=== PATIENT | female | born 1995 | race Two or more races ===

== ENCOUNTER 2024-06-26 03:03 | Emergency (ER) | payer MEDICAID, SELFPAY ==
[2024-06-26 03:06] VITALS: BP 129/91; PULSE 125; RESP 17; TEMP 36.4; O2SAT 97
[2024-06-26 03:13] VITALS: BMI 30.9
--- NOTE | 2024-06-26 03:51 | EDNOTE_ITS ---
ED Medical Clearance RME/HPI General Chief complaint: Medical Clearance Stated complaint: DETENTION CHECK Arrival date/time: 06/26/24 03:03 RME / HPI RME / HPI Narrative: This section includes all my notes and documentations, including HPI, PE, and ED course. Isaak Solano MD HPI: 29-year-old female here to be evaluated for medical clearance for incarceration. She was arrested for public intoxication. Found drugs in her possession. Due to severe hyperventilation, she was brought here for evaluation. Patient reports no complaints. ROS: All negative except as documented in HPI. Physical Exam: General: Alert and oriented. No acute distress. Eyes: Conjunctivae and lids clear. EOMI. PERRL. ENT: No nasal congestion. Pharynx normal. Tympanic membrane normal bilaterally. Neck: Supple. No JVD. Heart: Sinus tachycardia noted (~125 bpm). Lungs: No respiratory distress. Good air movement. No rhonchi, wheezing, rales. Abdomen: Soft and nontender. Normal bowel sounds. No distension. No rebound or guarding. Legs: No clubbing, cyanosis, edema. Skin: Warm and dry. Neuro: Alert and oriented X 3. Cranial Nerves II-XII grossly intact. No peripheral motor deficits. Treatment here included oral metoprolol 25 mg. She remained stable. Based on my best medical judgment, made decision to medically cleared the patient for intermediate and no further evaluation or treatment indicated at this time. Patient understands and agrees to the discharge instructions customized and printed, see below. Discharge Instructions from Dr. Solano printed for you: 1. After evaluation, you are medically cleared for intermediate. 2. You are given oral metoprolol 25 mg for fast heart rate. 3. See a private doctor on 06/27/2024 or when you are released for recheck and further care, including your BP and heart rate. Ask for help to quit alcohol and drugs, if applicable. To prevent potential fatal accidents and injuries and illnesses. 4. Ask for immediate medical care with any concerns. Isaak Solano MD Related Information Previous Rx's ?Medication ?Instructions ?Recorded tramadol 37.5 mg-acetaminophen 325 1 tab PO TID PRN pain #15 tabs 12/10/22 mg tablet (Ultracet) benzonatate 150 mg capsule 150 mg PO BID PRN cough #20 caps 11/23/22 diphenhydramine HCl 25 mg capsule 25 mg PO TID PRN cough #20 caps 11/23/22 (Allergy (diphenhydramine)) ibuprofen 800 mg tablet 800 mg PO Q8H PRN pain #20 tabs 11/23/22 cyclobenzaprine 10 mg tablet 10 mg PO BID #10 tabs 02/19/23 meloxicam 7.5 mg tablet 7.5 mg PO QDAY #10 tabs 02/19/23 ibuprofen 800 mg tablet 800 mg PO TID PRN pain #30 tabs 03/09/23 cefuroxime axetil 500 mg tablet 500 mg PO BID #14 tabs 04/12/23 Allergies Allergy/AdvReac Type Severity Reaction Status Date / Time No Known Allergies Allergy Unverified 04/12/23 15:30 Course Quality Measures none Orders Category Date Time Status Metoprolol Tartrate [Lopressor] Med 06/26/24 03:47 Discontinued 25 mg PO X1 ONE Vital Signs Vital signs: Vital Signs Temperature 97.5 F 06/26/24 03:06 Pulse Rate 125 H 06/26/24 03:06 Respiratory Rate 17 06/26/24 03:06 Blood Pressure 129/91 H 06/26/24 03:06 Pulse Oximetry (%) 97 06/26/24 03:06 Oxygen Delivery Method Room Air 06/26/24 03:06 Medical Clearance Patient data External records reviewed:: [facility] previous records Clinical information provided by:: patient and law enforcement Social determinants that could affect healthcare access:: alcohol use Patient has the following chronic illnesses:: Alcohol and substance abuse How is presenting disease/condition affected by chronic disease/condition?: exacerbated by Evaluation data The following diagnostics were reviewed and interpreted by me:: other (specify) (No diagnostic tests ordered) Lab and/or radiology exams considered but not ordered:: None Interpretation Summary: No diagnostic tests ordered Medications / Prescriptions Medications or Prescriptions considered but not ordered:: None Medication administrations:: Medication Administration History Discontinued Medications Metoprolol Tartrate (Metoprolol Tartrate 25 Mg Tablet) 25 mg PO X1 ONE Stop: 06/26/24 03:48 Metoprolol Consultations Consultation(s) initiated? (list below): No Diagnosis Medical Clearance Differential Diagnosis: other (Alcohol intoxication, drug use, anxiety) Most likely diagnosis given after review of the tests above:: Alcohol intoxication, drug use, anxiety Admission Indicated Admission indicated?: not indicated Explain why admission is indicated or not indicated:: Admission criteria not met Admission Request Was there a request for admission?: No Disposition Plan Disposition Plan: Discharge Discharge Attestation Discharge Attestation: The patient and all family members were given an opportunity to ask questions and understood the discharge instructions. Discharge instructions specifically effects, indications for sooner follow up or return to the emergency department, and the expected course of current diagnosis. Patient condition: Stable Discharge Plan Plan Patient Disposition: Penitentiary/Court/Law Prescriptions/Referrals Prescriptions/Med Rec: No Action diphenhydramine HCl [Allergy (diphenhydramine)] 25 mg capsule 25 mg PO TID PRN (Reason: cough) Qty: 20 0RF ibuprofen 800 mg tablet 800 mg PO Q8H PRN (Reason: pain) Qty: 20 0RF benzonatate 150 mg capsule 150 mg PO BID PRN (Reason: cough) Qty: 20 0RF ibuprofen 800 mg tablet 800 mg PO TID PRN (Reason: pain) Qty: 30 0RF tramadol-acetaminophen [Ultracet] 37.5-325 mg tablet 1 tab PO TID PRN (Reason: pain) Qty: 15 0RF cyclobenzaprine 10 mg tablet 10 mg PO BID Qty: 10 0RF meloxicam 7.5 mg tablet 7.5 mg PO QDAY Qty: 10 0RF cefuroxime axetil 500 mg tablet 500 mg PO BID Qty: 14 0RF Referrals: No Primary/Family,Physician [Primary Care Provider] - In 1 week Problem List Clinical Impression: Medical clearance for incarceration Patient/Caregiver Discharge Instructions Education Materials: ED Drug Abuse, ED Alcohol Intoxication Additional Instructions: Discharge Instructions from Dr. Solano printed for you: 1. After evaluation, you are medically cleared for intermediate. 2. You are given oral metoprolol 25 mg for fast heart rate. 3. See a private doctor on 06/27/2024 or when you are released for recheck and further care, including your BP and heart rate. Ask for help to quit alcohol and drugs, if applicable. To prevent potential fatal accidents and injuries and illnesses. 4. Ask for immediate medical care with any concerns. Print Language: Iranian
[2024-06-26 03:55] VITALS: BP 129/91; PULSE 130
[2024-06-26] MEDS: METOPROLOL TARTRATE 25 MG TABLET PO (03:55)
== END 2024-06-26 03:58 ==
PROVIDERS: Emergency Provider Emergency Medicine
DX: Z02.89 Encounter for other administrative examinations (principal)
CPT/HCPCS: 99282; A9270

== ENCOUNTER 2025-03-17 16:19 | Emergency (ER) | payer MEDICAID, SELFPAY ==
[2025-03-17 16:20] VITALS: BMI 30.9
[2025-03-17 16:42] VITALS: BP 131/87; PULSE 99; RESP 18; TEMP 37.2; O2SAT 97
--- NOTE | 2025-03-17 17:01 | EDNOTE_ITS ---
ED Skin Abcess FB-RME/HPI General Chief complaint: Skin/Abscess/Foreign Body Stated complaint: SPIDER BITE TO RIGHT CHEEK 3 DAYS AGO Time Seen by Provider: 03/17/25 16:39 Source: patient Arrival date/time: 03/17/25 16:19 This is a case of 30-year-old female with no medical history came in in the emergency room due to painful lump on the right cheek with redness and swelling secondary to spider bite 3 days ago due to worsening of the symptoms this patient decided to sought consult here in the emergency room Limitations: no limitations Related Data Previous Rx's ?Medication ?Instructions ?Recorded tramadol 37.5 mg-acetaminophen 325 1 tab PO TID PRN pa in #15 tabs 06/11/22 mg tablet (Ultracet) benzonatate 150 mg capsule 150 mg PO BID PRN cough #20 caps 11/23/22 diphenhydramine HCl 25 mg capsule 25 mg PO TID PRN cou gh #20 caps 11/23/22 (Allergy (diphenhydramine)) ibuprofen 800 mg tablet 800 mg PO Q8H PRN pain #20 t abs 11/23/22 cyclobenzaprine 10 mg tablet 10 mg PO BID #10 tabs meloxicam 7.5 mg tablet 7.5 mg PO QDAY #10 tabs 02/01 ibuprofen 800 mg tablet 800 mg PO TID PRN pain #30 t abs 03/09/23 cefuroxime axetil 500 mg tablet 500 mg PO BID #14 tabs 04/12/23 clindamycin HCl 300 mg capsule 300 mg PO Q6H #40 caps 03/17/25 doxycycline hyclate 100 mg tablet 100 mg PO BID #20 ta bs 03/17/25 Allergies Allergy/AdvReac Type Severity Reaction Status Date / Time No Known Allergies Allergy Unverified 03/17/25 16:22 Review of Systems Review of Systems Systems Reviewed: All systems reviewed, normal except as documented Constitutional Constitutional: Reports system reviewed and no additional complaints, except as documented and Reports as per HPI Cardiovascular Cardiovascular: Reports system reviewed and no additional complaints, except as documented and Reports as per HPI Respiratory Respiratory: Reports system reviewed and no additional complaints, except as documented and Reports as per HPI Gastrointestinal Gastrointestinal: Reports system reviewed and no additional complaints, except as documented and Reports as per HPI Musculoskeletal Musculoskeletal: Reports system reviewed and no additional complaints, except as documented and Reports as per HPI Integumentary/Breasts Skin/Breast: Reports other (Abscess) Neurologic Neurologic: Reports system reviewed and no additional complaints, except as documented Past Medical History Past Medical History NEUROLOGIC: Negative Seizures CARDIAC: Negative Cardiac Disorders or Congestive Heart Failure RESPIRATORY: Positive Asthma; Negative Chronic Obstructive Pulmonary Disease (COPD) GASTROINTESTINAL: Positive Gall Bladder Disease; Negative Gastrointestinal Disorders GENITOURINARY: Negative Renal Disease ENDOCRINE: Negative Endocrine Disorders, Diabetes Mellitus Type 1 or Diabetes Mellitus Type 2 PSYCHO/SOCIAL: Positive Depression and Anxiety OTHER HISTORY: Negative Blood Transfusions, Blood Transfusion Reaction or Anesthesia Reactions Social History SMOKING STATUS: Current some day smoker ED Exam General Limitations: Present no limitations General appearance: Present alert, in no apparent distress and other (Patient is awake alert oriented not in distress nontoxic looking well-hydrated well- nourished) Head Head exam: Present atraumatic, normocephalic and normal inspection Eye Eye exam: Present normal appearance, PERRL, EOMI and other (PERRL EOM intact normal conjunctiva no periorbital swelling redness or cellulitis no papilledema no hyphema) ENT ENT exam: Present normal exam, normal oropharynx and mucous membranes moist Neck Neck exam: Present normal inspection, full ROM and trachea midline; Absent tenderness, meningismus, lymphadenopathy or thyromegaly Chest Chest inspection: Present normal inspection and symmetric chest wall rise; Absent tenderness, rash or abscess Respiratory Respiratory exam: Present normal lung sounds bilaterally; Absent respiratory distress, wheezes, stridor, accessory muscle use or prolonged expiratory phase Cardiovascular Cardiovascular exam: Present regular rate, normal rhythm and normal heart sounds; Absent bradycardia, tachycardia, irregular rhythm, systolic murmur or diastolic murmur Abdominal Exam Abdominal exam: Present soft and normal bowel sounds Extremities Exam Extremities exam: Present normal inspection and full ROM Back Exam Back exam: Present normal inspection and full ROM Neurological Exam Neurological exam: Present alert, oriented X3, CN II-XII intact, normal gait and reflexes normal; Absent motor sensory deficit Psychiatric Psychiatric exam: Present normal affect and normal mood Skin Skin exam: Present warm, dry, intact, normal color and other (Noted 2 to 3 cm lump hard and tender to touch with redness and swelling suggestive of abscess no fluctuance none indurated no surrounding cellulitis no ulcer) Course Quality Measures none Orders Category Date Time Status Clindamycin Vial [Cleocin vial] Med 03/17/25 16:51 Discontinued 600 mg IM X1 ONE Vital Signs Vital signs: Vital Signs Temperature 98.9 F 03/17/25 16:42 Pulse Rate 99 03/17/25 16:42 Respiratory Rate 18 03/17/25 16:42 Blood Pressure 131/87 H 03/17/25 16:42 Pulse Oximetry (%) 97 03/17/25 16:42 Oxygen Delivery Method Room Air 03/17/25 16:42 Oxygen saturation is 97% in room air Skin / Abscess / Foreign Body MDM Narrative MDM Narrative:: This is a case of 30-year-old female with no medical history came in in the emergency room due to painful lump on the right cheek with redness and swelling secondary to spider bite 3 days ago due to worsening of the symptoms this patient decided to sought consult here in the emergency room physical examination patient is awake alert oriented not in distress nontoxic looking well-hydrated well-nourished noted 2 to 3 cm lump on the right cheek tender to touch hard to touch with redness and swelling suggestive of abscess no fluctuance not indurated no surrounding cellulitis the rest of the physical examination were normal no periorbital cellulitis tenderness or swelling based on my physical examination there is a localized abscess on the right cheek at the time of exam there is no indication to perform incision and drainage clindamycin IM was given and followed with prescription of clindamycin and doxycycline patient was advised to return in the emergency room in 2 days for reevaluation and possible incision and drainage for any worsening symptoms or any emergent concern return precaution in the ER was advised Patient was discharged with comfortable condition walking with stable gait. Patient verbalized no further complains explained diagnosis and answered patient question. Patient is comfortable with the proposed management plan including the need to follow up with his/her primary care physician and any specialist if applicable Discussed patient for any urgent condition or worsening sx, He/She needed to go to emergency room immediately or call 911. Patient acknowledge the responsibility to follow up as instructed and to monitor her/his symptoms. For any persistence of the symptoms for more than 3-5 days return precaution advised. Discussed the result of the test and was given printed discharge instruction Patient data External records reviewed:: [facility] previous records Clinical information provided by:: patient Social determinants that could affect healthcare access:: none Patient has the following chronic illnesses:: None How is presenting disease/condition affected by chronic disease/condition?: no chronic disease Evaluation data The following diagnostics were reviewed and interpreted by me:: other (specify) (None) Lab and/or radiology exams considered but not ordered:: None Interpretation Summary: None Medications / Prescriptions Medications or Prescriptions considered but not ordered:: Given Medication administrations:: Medication Administration History Discontinued Medications Clindamycin Phosphate (Clindamycin Phos Inj 150 Mg/Ml Vial 6 Ml) 600 mg IM X1 ONE Stop: 03/17/25 16:52 Given Consultations Consultation(s) initiated? (list below): No Diagnosis Skin/Abscess Differential Diagnosis: abscess of skin or subcutaneous tissue, urticaria, cellulitis and insect bites Most likely diagnosis given after review of the tests above:: Abscess right cheek Admission Indicated Admission indicated?: not indicated Explain why admission is indicated or not indicated:: Not indicated Admission Request Was there a request for admission?: No Admission Attestation Admission request attestation: Not indicated Disposition Plan Disposition Plan: Discharge Discharge Attestation Discharge Attestation: The patient and all family members were given an opportunity to ask questions and understood the discharge instructions. Discharge instructions specifically effects, indications for sooner follow up or return to the emergency department, and the expected course of current diagnosis. Patient condition: Stable Discharge Plan Plan Patient Disposition: HOME (Self Care) Patient condition on transfer: Stable Prescriptions/Referrals Prescriptions/Med Rec: New clindamycin HCl 300 mg capsule 300 mg PO Q6H Qty: 40 0RF doxycycline hyclate 100 mg tablet 100 mg PO BID Qty: 20 0RF No Action diphenhydramine HCl [Allergy (diphenhydramine)] 25 mg capsule 25 mg PO TID PRN (Reason: cough) Qty: 20 0RF ibuprofen 800 mg tablet 800 mg PO Q8H PRN (Reason: pain) Qty: 20 0RF benzonatate 150 mg capsule 150 mg PO BID PRN (Reason: cough) Qty: 20 0RF ibuprofen 800 mg tablet 800 mg PO TID PRN (Reason: pain) Qty: 30 0RF tramadol-acetaminophen [Ultracet] 37.5-325 mg tablet 1 tab PO TID PRN (Reason: pain) Qty: 15 0RF cyclobenzaprine 10 mg tablet 10 mg PO BID Qty: 10 0RF meloxicam 7.5 mg tablet 7.5 mg PO QDAY Qty: 10 0RF cefuroxime axetil 500 mg tablet 500 mg PO BID Qty: 14 0RF Problem List Clinical Impression: Nonvenomous spider bite, Abscess of external cheek, right Patient/Caregiver Discharge Instructions Education Materials: ED Abscess Antibiotic ..., ED Bite Spider Non Poisonous, ED Insect Bite Additional Instructions: Follow-up with your primary care physician in 2 days for reevaluation it is very important to return in the emergency room in 2 days for reevaluation and possible incision and drainage worsening symptoms or any emergent concern such as redness swelling discharge from the wound pain fever chills return to the emergency room immediately or call 911 keep wound clean and dry finish the course of antibiotic take Tylenol Motrin as needed for pain Print Language: Slovak Stand Alone Forms: [employer] Award Info., Patient Portal Info Letter PA/[employer] Supervising Physician PA/MELISSA Supervising Physician: dr amato
[2025-03-17] MEDS: CLINDAMYCIN PHOS INJ 150 MG/ML VIAL 6 ML 600 MG IM (17:27)
== END 2025-03-17 17:36 | disposition home or self-care (01) ==
LOC: SERX 17:09
PROVIDERS: Emergency Provider Emergency Medicine
DX: S00.86XA Insect bite (nonvenomous) of other part of head, initial encounter (principal); L02.01 Cutaneous abscess of face; W57.XXXA Bitten or stung by nonvenomous insect and other nonvenomous arthropods, initial encounter
CPT/HCPCS: 96372; 99282; J0736